=== PATIENT | male | born 1945 | race Caucasian/White ===

== ENCOUNTER → 2020-11-21 13:42 | Outpatient (CLI) | payer MEDICARE, SELFPAY ==
[2020-11-21] MEDS: COVID-19 VACC, Ad26(JANSSEN)/PF 0.5 ML IM (14:04)
== END ==
PROVIDERS: Family Provider Ophthalmology; PCP Internal Medicine; Visit Provider Internal Medicine
DX: Z23 Encounter for immunization (principal)
CPT/HCPCS: 0031A; 91303

== ENCOUNTER 2020-12-18 12:05 | Emergency (ER) | payer OTHER, SELFPAY ==
[2020-12-18] VITALS (12 sets, daily range): BP systolic 110–199; BP diastolic 75–92; PULSE 55–110; RESP 16–24; TEMP 37.2; O2SAT 96–100; BMI 26.5
[2020-12-18 12:37] LABS: INR 1.1 (0.9-1.3); Prothrombin Time 12.2 SECONDS (10.1-12.7)
[2020-12-18 12:43] LABS: Alanine Aminotransferase 26 IU/L (<50); Albumin 4.6 g/dL (3.5-5.0); Albumin Globulin Ratio 1.5 (1.0-2.8); Alkaline Phosphatase 60 U/L (38-126); Aspartate Aminotransferase 29 IU/L (17-59); BUN Creatinine Ratio 17.7 (6-22); Bilirubin Total 0.7 mg/dL (0.2-1.3); Blood Urea Nitrogen 14 mg/dL (9-20); Calcium 9.4 mg/dL (8.4-10.2); Carbon Dioxide 24 mmol/L (22-32); Chloride 101 mmol/L (98-107); Estimated Glomerular Filt Rate > 60.0 mL/min (>60); Globulin 3.1 g/dL (1.7-4.1); Glucose 113 mg/dL (80-110); HEMOLYSIS < 15 (0-50); Potassium 4.1 mmol/L (3.4-5.1); Sodium 135 mmol/L (137-145); Total Protein 7.7 g/dL (6.3-8.2)
[2020-12-18 12:46] LABS: Add Manual Diff / Slide Review NO; Basophils Absolute Auto 100 /uL (0-100); Eosinophils Absolute Auto 300 /uL (0-450); Eosinophils Percent Auto 2.7 % (2-4); Hematocrit 42.7 % (41-53); Hemoglobin 14.4 g/dL (13.5-17.5); Lymphocytes Absolute Auto 3600 /uL (1100-4500); Lymphocytes Percent Auto 33.1 % (25-40); Mean Corpuscular HGB Conc 33.8 % (30-36); Mean Corpuscular Hemoglobin 30.1 PG (26-34); Mean Corpuscular Volume 89.2 fL (80-100); Monocytes Absolute Auto 1200 /uL (0-900); Monocytes Percent Auto 11.2 % (3-14); Neutrophils Absolute Auto 5700 /uL (1500-7000); Platelet Count 229 X10^3/uL (150-400); Red Blood Cell Count 4.79 X10^6/uL (4.5-5.9); Red Cell Distribution Width 13.9 % (11.6-14.8); White Blood Cell Count 10.9 X10^3/uL (4.5-11.0)
[2020-12-18 12:47] LABS: Appearance Urine UA TURBID; Bacteria Urine None Seen; Bilirubin Urine UA NEGATIVE (NEGATIVE); Color Urine UA RED; Glucose Urine UA TRACE g/dL (Negative); Ketones Urine UA TRACE (NEGATIVE); Leukocyte Esterase Urine UA TRACE (NEGATIVE); Nitrite Urine UA POSITIVE (Negative); Occult Blood Urine UA 3+ (Negative); Protein Urine UA 3+ (Negative); Specific Gravity Urine UA 1.015 (1.000-1.035); Urobilinogen Urine UA 0.2 E.U./dL (0.2); pH Urine UA 7.5 (4.5-8.0)
[2020-12-18 12:50] LABS: RBC Urine >100/HPF (0-5/HPF); WBC Urine 1-5/HPF (0-5/HPF)
[2020-12-18 12:51] LABS: Culture Indicated Urine Specimen Cultured
--- NOTE | 2020-12-18 14:57 | ED_ITS ---
HPI - Male Genitourinary General Chief complaint: Urogenital-Male Stated complaint: Blood in urine Time Seen by Provider: 12/18/20 14:56 Source: patient Mode of arrival: Ambulatory Limitations: no limitations History of Present Illness HPI Narrative: 75-year-old gentleman with no significant medical history who takes a baby aspirin a day presents with acute gross hematuria. He had noted some pink urine last night some this morning and then mid day had the acute onset of gross hematuria without pain. He does not describe significant urinary retention, hesitancy frequency or dysuria. He does not describe vomiting, diarrhea, abdominal pain. No night sweats or recent weight changes. No abdominal pain or diarrhea. No chest pain palpitations or dyspnea. Dizziness or orthostatic symptoms. He is a lifelong nonsmoker. Related Data Previous Rx's Medication Instructions Recorded tamsulosin 0.4 mg PO DAILY #30 cap 12/18/20 Allergies Allergy/AdvReac Type Severity Reaction Status Date / Time No Known Drug Allergies Allergy Verified 12/18/20 12:17 Review of Systems Review of Systems Narrative: Remainder of review of systems is otherwise unremarkable Patient History Social History Smoking Status: Never smoker Smoking Status: Never smoker alcohol intake frequency: 3 or more drinks per day Alcohol type: beer, wine and hard liquor Substance Use Type: does not use Exam Narrative Exam Narrative: General: Healthy appearing, in no acute distress. Able to give a complete and coherent history. Well-nourished well-developed HEENT: Moist mucous membranes, normal sclera with reactive pupils, Neck: supple Respiratory: Lungs are clear to auscultation, no wheezing no rales no rhonchi. Full and symmetrical air movement Cardiac: Regular rate and rhythm no murmurs no bruits Abdomen: Soft, nontender, good bowel tones, no flank pain Skin: Warm and dry, no rashes Neurologic: Grossly neurologically intact with no obvious asymmetries or abnormalities Extremities: No trauma, well perfused Psych: Cooperative, appropriate insight and affect Bedside ultrasound: Postvoid residual 350 cc. 6.6 x 5.6 cm mass at the base of the bladder that appears to be complex. Initial Vital Signs Initial Vital Signs: Vital Signs Pulse Rate 100 H 12/18/20 12:14 Respiratory Rate 18 12/18/20 12:14 Pulse Oximetry 100 12/18/20 12:14 Course Orders Ordered: ED Orders 12/18/20 12:23 Complete Blood Count AUTO DIFF Stat Comprehensive Metabolic Panel Stat Prothrombin Time INR Stat 12/18/20 12:32 Urinalysis and Microscopic Stat Urine Culture Stat 12/18/20 15:33 CT abdomen pelvis w con Stat Discontinued Medications Tamsulosin HCl (Tamsulosin 0.4 Mg Capsule) 0.4 mg PO NOW ONE Stop: 12/18/20 15:38 Last Admin: 12/18/20 16:04 Dose: 0.4 mg Documented by: Vital Signs Vital signs: Vital Signs - 8 hr 12/18/20 12:14 12/18/20 12:17 12/18/20 12:30 Temperature 99.0 F Pulse Rate 100 H 82 110 H Respiratory Rate 18 24 17 Blood Pressure 110/75 110/86 Pulse Oximetry 100 100 97 12/18/20 13:00 12/18/20 13:14 12/18/20 13:30 Temperature Pulse Rate 93 H 57 L 61 Respiratory Rate 21 Blood Pressure 199/92 H 193/89 H Pulse Oximetry 97 98 97 12/18/20 13:32 12/18/20 14:00 12/18/20 14:20 Temperature Pulse Rate 55 L 75 92 H Respiratory Rate 18 Blood Pressure 182/79 H 164/75 H Pulse Oximetry 97 96 97 12/18/20 14:30 12/18/20 16:03 12/18/20 16:04 Temperature Pulse Rate 89 92 H 71 Respiratory Rate 16 Blood Pressure 159/76 H 168/83 H Pulse Oximetry 97 97 97 MDM - Male Genitourinary Medical Records Attestation: I reviewed the patient's medical records. Lab Data Attestation: I reviewed the patient's lab results. Result diagrams: 12/18/20 12:23 12/18/20 12:23 Labs: Lab Results 12/18/20 12/18/20 12/18/20 Range/Units 12:23 12:23 12:23 WBC 10.9 (4.5-11.0) X10^3/uL RBC 4.79 (4.5-5.9) X10^6/uL Hgb 14.4 (13.5-17.5) g/dL Hct 42.7 (41-53) % MCV 89.2 (80-100) fL MCH 30.1 (26-34) PG MCHC 33.8 (30-36) % RDW 13.9 (11.6-14.8) % Plt Count 229 (150-400) X10^3/uL Neut % (Auto) 52.0 (50-75) % Lymph % (Auto) 33.1 (25-40) % [place] % (Auto) 11.2 (3-14) % Eos % (Auto) 2.7 (2-4) % Baso % (Auto) 1.0 (0-2) % Neut # (Auto) 5700 (4240-5923) /uL Lymph # (Auto) 3600 (9269-7424) /uL [place] # (Auto) 1200 H (0-900) /uL Eos # (Auto) 300 (0-450) /uL Baso # (Auto) 100 (0-100) /uL PT 12.2 (10.1-12.7) SECONDS INR 1.1 (0.9-1.3) Sodium 135 L (137-145) mmol/L Potassium 4.1 (3.4-5.1) mmol/L Chloride 101 (98-107) mmol/L Carbon Dioxide 24 (22-32) mmol/L BUN 14 (9-20) mg/dL Creatinine 0.79 (0.66-1.25) mg/dL Estimated GFR > 60.0 (>60) mL/min BUN/Creatinine Ratio 17.7 (6-22) Glucose 113 H (80-110) mg/dL Calcium 9.4 (8.4-10.2) mg/dL Total Bilirubin 0.7 (0.2-1.3) mg/dL AST 29 (17-59) IU/L ALT 26 (<50) IU/L Alkaline Phosphatase 60 (38-126) U/L Total Protein 7.7 (6.3-8.2) g/dL Albumin 4.6 (3.5-5.0) g/dL Globulin 3.1 (1.7-4.1) g/dL Albumin/Globulin Ratio 1.5 (1.0-2.8) Urine Color Urine Appearance Urine pH (4.5-8.0) Ur Specific [place] (1.000-1.035) Urine Protein (Negative) Urine Glucose (UA) (Negative) g/dL Urine Ketones (NEGATIVE) Urine Occult Blood (Negative) Urine Nitrate (Negative) Urine Bilirubin (NEGATIVE) Urine Urobilinogen (0.2) E.U./dL Ur Leukocyte Esterase (NEGATIVE) Urine RBC (0-5/HPF) Urine WBC (0-5/HPF) Urine Bacteria (None) Ur Culture Indicated? 12/18/20 Range/Units 12:32 WBC (4.5-11.0) X10^3/uL RBC (4.5-5.9) X10^6/uL Hgb (13.5-17.5) g/dL Hct (41-53) % MCV (80-100) fL MCH (26-34) PG MCHC (30-36) % RDW (11.6-14.8) % Plt Count (150-400) X10^3/uL Neut % (Auto) (50-75) % Lymph % (Auto) (25-40) % [place] % (Auto) (3-14) % Eos % (Auto) (2-4) % Baso % (Auto) (0-2) % Neut # (Auto) (4718-9919) /uL Lymph # (Auto) (1818-7396) /uL [place] # (Auto) (0-900) /uL Eos # (Auto) (0-450) /uL Baso # (Auto) (0-100) /uL PT (10.1-12.7) SECONDS INR (0.9-1.3) Sodium (137-145) mmol/L Potassium (3.4-5.1) mmol/L Chloride (98-107) mmol/L Carbon Dioxide (22-32) mmol/L BUN (9-20) mg/dL Creatinine (0.66-1.25) mg/dL Estimated GFR (>60) mL/min BUN/Creatinine Ratio (6-22) Glucose (80-110) mg/dL Calcium (8.4-10.2) mg/dL Total Bilirubin (0.2-1.3) mg/dL AST (17-59) IU/L ALT (<50) IU/L Alkaline Phosphatase (38-126) U/L Total Protein (6.3-8.2) g/dL Albumin (3.5-5.0) g/dL Globulin (1.7-4.1) g/dL Albumin/Globulin Ratio (1.0-2.8) Urine Color Red Urine Appearance Turbid Urine pH 7.5 (4.5-8.0) Ur Specific [place] 1.015 (1.000-1.035) Urine Protein 3+ H (Negative) Urine Glucose (UA) Trace H (Negative) g/dL Urine Ketones Trace H (NEGATIVE) Urine Occult Blood 3+ H (Negative) Urine Nitrate Positive (Negative) Urine Bilirubin Negative (NEGATIVE) Urine Urobilinogen 0.2 (0.2) E.U./dL Ur Leukocyte Esterase Trace H (NEGATIVE) Urine RBC >100/hpf H (0-5/HPF) Urine WBC 1-5/hpf (0-5/HPF) Urine Bacteria None seen (None) Ur Culture Indicated? Specimen cultured MDM Narrative Medical decision making narrative: 75-year-old otherwise healthy gentleman with no current medicines presents with acute hematuria. Bedside bladder scan shows 350 cc postvoid residual and what looks like an exophytic mass 5.6 x 6.6 cm at the base of the bladder. This mass does not look like a simple hematoma/clot. Case is reviewed with Dr. Hernandes, he requests CT scan of the abdomen and pelvis which is facilitated. His office will call the patient to schedule a follow-up appointment within the next 1-2 days. Encouraged patient to return if he is unable to void at all. Discharge Plan Departure Patient Disposition: Home Clinical Impression: Bladder mass Hematuria Qualifiers: Hematuria type: gross Qualified Code(s): R31.0 - Gross hematuria Instructions: DI for Hematuria Activity Restrictions/Additional Instructions: Thank you for coming in today Your workup does not suggest that you have a kidney stone or bladder infection. I am concerned that there is a bladder mass and that the bleeding is coming from small broken blood vessel. Fortunately, of severe anemia or excessive blood loss (despite the amount of blood that you are seeing in your urine). I have reviewed your case with Dr. Hernandes, our urologist. His office will be contacting you within the next 24 hours. If you do not hear from them by midday tomorrow, please call them directly. I have included his office information in your discharge instructions If you find that you are unable to void at all, you will need to return to the emergency department and will need to put in a urinary catheter. I have given you the 1st dose of tamsulosin/Flomax today and will ask you to fill the prescription to begin tomorrow. I wish you the best Prescriptions: New tamsulosin 0.4 mg capsule 0.4 mg PO DAILY Qty: 30 RF: 0 Referrals: Kirstie Hernandes MD [Physician] - Nahum Kline MD [Primary Care Provider] -
--- NOTE | 2020-12-18 15:14 | PC.NURSE ---
Dr Alonso in to see pt with bedside US
--- NOTE | 2020-12-18 15:33 | DI.CT.S_ITS ---
PROCEDURE: CT ABDOMEN PELVIS W CON INDICATIONS: gross hematuria, bladder mass suspected on bedside us TECHNIQUE: After the administration of intravenous contrast, 5 mm thick sections acquired from the diaphragm to the symphysis. 5 mm coronal and sagittal reformats were acquired. For radiation dose reduction, the following was used: automated exposure control, adjustment of mA and/or kV according to patient size. COMPARISON: None. FINDINGS: Image quality: Excellent. ABDOMEN: Lung bases: Lung bases are clear. Heart size is normal. Solid organs: Liver is normal in size and enhancement. Diffuse fatty infiltration of the liver. Gallbladder is normal. Biliary system is non dilated. Pancreas enhances normally. Spleen is normal in size and enhancement. No adrenal nodules. Kidneys demonstrate normal size and enhancement, without hydronephrosis. Peritoneum and bowel: Bowel loops demonstrate normal wall thickness and caliber. Scattered colonic diverticuli without evidence of diverticulitis. No free fluid or air. Appendix is normal. Nodes and vessels: No retroperitoneal or mesenteric adenopathy by size criteria. Aorta and inferior vena cava are normal in size. Miscellaneous: No ventral hernias. PELVIS: Genitourinary: Bladder wall thickness is normal. Prostate is enlarged measuring 5.8 by 6.5 by 6.2 centimeters. 3.6 centimeter heterogeneously enhancing mass noted in the base of the bladder. Curvilinear density noted in the bladder adjacent to the mass which may represent hemorrhage. Miscellaneous: No inguinal hernias or adenopathy. Bones: No suspicious bony lesions. No vertebral body compression fractures. Spine degenerative disc disease and facet arthropathy. Grade 2 L4-L5 isthmic spondylolisthesis. IMPRESSION: 1. 3.6 centimeter mass in the base of the bladder which could represent clotted blood, mass arising from the prostate gland or mass arising from the bladder wall. 2. Curvilinear density in the urinary bladder adjacent to the lesion in the base most compatible with hemorrhage. 3. Colonic diverticulosis without evidence of diverticulitis. 4. Hepatic steatosis. Dictated by: Susanna Rachel MD, PhD on 12/18/2020 at 16:02 Approved by: Susanna Rachel MD, PhD on 12/18/2020 at 16:11
[2020-12-18] MEDS: TAMSULOSIN 0.4 MG CAPSULE PO (16:04)
== END 2020-12-18 16:51 | disposition home or self-care (01) ==
PROVIDERS: Emergency Medicine; Emergency Provider Emergency Medicine; Family Provider Ophthalmology; PCP Internal Medicine
DX: N32.9 Bladder disorder, unspecified (principal); R31.9 Hematuria, unspecified
CPT/HCPCS: 36415; 51798; 74177; 80053; 81001; 85025; 85610; 87086; 99284; Q9967

== ENCOUNTER → 2020-12-20 14:50 | Outpatient (ROUT) | payer OTHER, SELFPAY ==
[2020-12-20 15:07] LABS: Alanine Aminotransferase 30 IU/L (<50); Albumin 4.4 g/dL (3.5-5.0); Albumin Globulin Ratio 1.5 (1.0-2.8); Alkaline Phosphatase 51 U/L (38-126); Aspartate Aminotransferase 38 IU/L (17-59); BUN Creatinine Ratio 20.5 (6-22); Bilirubin Total 0.8 mg/dL (0.2-1.3); Blood Urea Nitrogen 17 mg/dL (9-20); Calcium 9.4 mg/dL (8.4-10.2); Carbon Dioxide 27 mmol/L (22-32); Chloride 102 mmol/L (98-107); Cholesterol 208 mg/dL (140-199); Estimated Glomerular Filt Rate > 60.0 mL/min (>60); Globulin 2.9 g/dL (1.7-4.1); Glucose 111 mg/dL (80-110); HDL Cholesterol 46 mg/dL (40-60); HEMOLYSIS < 15 (0-50); LDL Cholesterol Calculated 135 mg/dL (<100); Potassium 4.2 mmol/L (3.4-5.1); Sodium 138 mmol/L (137-145); Total Protein 7.3 g/dL (6.3-8.2); Triglycerides 133 mg/dL (35-150)
[2020-12-22 08:12] LABS: PSA Free % 19.8 % (.); PSA, Total 4.4 ng/mL (0.0-4.0)
== END ==
PROVIDERS: Family Provider Ophthalmology; PCP Internal Medicine; Visit Provider Internal Medicine
DX: Z12.5 Encounter for screening for malignant neoplasm of prostate (principal); I10 Essential (primary) hypertension
CPT/HCPCS: 80053; 80061; 84153; 84154

== ENCOUNTER → 2021-01-21 15:04 | Outpatient (ROUT) | payer OTHER, SELFPAY | PROVIDERS: Family Provider Ophthalmology; PCP Internal Medicine; Visit Provider Internal Medicine | DX: N39.0 Urinary tract infection, site not specified (principal) | CPT/HCPCS: 87086 ==

== ENCOUNTER → 2021-06-24 09:16 | Outpatient (CLI) | payer OTHER, SELFPAY ==
[2021-06-24 10:32] LABS: Prostate Specific Antigen 1.47 ng/mL (0.10-4.00)
== END ==
PROVIDERS: Family Provider Ophthalmology; PCP Internal Medicine; Referring Provider Specialist; Visit Provider Specialist
DX: N13.8 Other obstructive and reflux uropathy (principal); N40.1 Benign prostatic hyperplasia with lower urinary tract symptoms
CPT/HCPCS: 36415; 84153

== ENCOUNTER → 2021-08-21 13:46 | Outpatient (CLI) | payer OTHER, SELFPAY ==
[2021-08-21 14:48] LABS: Alanine Aminotransferase 15 IU/L (<50); Albumin 4.7 g/dL (3.5-5.0); Albumin Globulin Ratio 1.6 (1.0-2.8); Alkaline Phosphatase 58 U/L (38-126); Aspartate Aminotransferase 21 IU/L (17-59); BUN Creatinine Ratio 14.4 (6-22); Bilirubin Total 0.8 mg/dL (0.2-1.3); Blood Urea Nitrogen 13 mg/dL (9-20); Calcium 9.4 mg/dL (8.4-10.2); Carbon Dioxide 28 mmol/L (22-32); Chloride 101 mmol/L (98-107); Cholesterol 205 mg/dL (140-199); Estimated Glomerular Filt Rate > 60.0 mL/min (>60); Glucose 101 mg/dL (80-110); HDL Cholesterol 52 mg/dL (40-60); HEMOLYSIS < 15 (0-50); LDL Cholesterol Calculated 131 mg/dL (<100); Potassium 3.7 mmol/L (3.4-5.1); Sodium 140 mmol/L (137-145); Total Protein 7.7 g/dL (6.3-8.2); Triglycerides 108 mg/dL (35-150)
[2021-08-21 17:00] LABS: Hep C Virus Ab w/Reflex Quant NEGATIVE s/c (NEGATIVE)
== END ==
PROVIDERS: Family Provider Ophthalmology; PCP Internal Medicine; Referring Provider Internal Medicine; Visit Provider Internal Medicine
DX: E78.5 Hyperlipidemia, unspecified (principal); Z11.59 Encounter for screening for other viral diseases
CPT/HCPCS: 36415; 80053; 80061; 86803

== ENCOUNTER → 2022-01-16 11:06 | Outpatient (CLI) | payer MEDICARE, SELFPAY ==
[2022-01-16 12:36] LABS: COVID19 -Nasal RAPID Negative (Negative)
== END ==
PROVIDERS: Family Provider Ophthalmology; PCP Internal Medicine; Visit Provider Family Medicine Sleep Medicine
DX: Z20.822 Contact with and (suspected) exposure to COVID-19 (principal)
CPT/HCPCS: 87635; C9803

== ENCOUNTER 2022-01-19 11:52 | Day surgery (SDC) | payer MEDICARE, SELFPAY ==
--- NOTE | 2022-01-19 | PATH_ITS ---
[facility] Accession Number: [id number] . 01 Material submitted: . colon - ASCENDING COLON . 02 Diagnosis: Ascending Colon: Tubular adenoma. MRV 01/21/2022 0851 Local . 02 Electronically signed: . Cheri Sotelo MD, Pathologist NPI- [id number] . 01 Gross description: . ASCENDING COLON: Received in formalin is 1 fragment(s) of chávez, soft tissue measuring 0.3 x 0.3 x 0.2 cm submitted entirely in 1 cassette(s) /QBJ 01/20/2022 0915 Local . 02 Pathologist provided ICD-10: K63.5, R19.5 . 02 CPT . 326878 Specimen Comment: A courtesy copy of this report has been sent to [facility] Performed at: 01 [facility] [address] [place] [address], [place], [place] [id number] MD Jayme Diaz MD Phone: [phone] Performed at: 02 [facility] [address] [place], [place] [id number] MD Nicole Larsen MD Phone: [phone]
[2022-01-19] MEDS: SODIUM CHLORIDE 0.9% 1,000 ML 100 ML IV (12:15)
[2022-01-19 12:29] VITALS: BP 148/88; PULSE 81; RESP 18; TEMP 36.2; O2SAT 98; BMI 28.1
--- NOTE | 2022-01-19 12:57 | PM.HP.1 ---
History of Present Illness History of Present Illness Date Patient Seen: 01/19/22 Time Patient Seen: 12:57 Chief complaint: DX COLONOSCOPY Narrative: Positive Cologuard Patient History Medical History Asthma BPH w urinary obs/LUTS Chest pain Gross hematuria Surgical History H/O cataract removal with insertion of prosthetic lens H/O circumcision Family & Social History Family History Mother Hypertension Thyroid disorder Urinary tract infection Kidney stones Hyperparathyroidism Brother Pancreatic cancer Inflammatory bowel disease Social History: household members spouse Tobacco & Substance use: Smoking Status Former smoker alcohol intake current alcohol intake frequency 0-2 drinks per day Substance Use Type does not use Meds Home Medications and Allergies Home Medications Medication Instructions Recorded Confirmed Type omega-3 fatty acids 1,000 mg 1,000 mg PO DAILY 12/26/20 01/19/22 History capsule (Fish Oil Concentrate) amlodipine 10 mg tablet 10 mg PO DAILY 07/01/21 01/19/22 History finasteride 5 mg tablet 5 mg PO DAILY #90 tab 10/08/21 01/19/22 Rx tamsulosin 0.4 mg capsule 0.4 mg PO DAILY 01/19/22 01/19/22 History Allergies Allergy/AdvReac Type Severity Reaction Status Date / Time No Known Drug Allergies Allergy Verified 01/19/22 12:16 Review of Systems Review of Systems ROS: Yes All systems reviewed with the patient and are negative except as otherwise documented Exam Vital Signs (past 8 hours): - 01/19/22 12:29 Temperature 97.2 F L Pulse Rate 81 Respiratory Rate 18 Blood Pressure 148/88 H Pulse Oximetry 98 Oxygen Delivery Method Room Air Const General: cooperative and comfortable Orientation: alert HENMT Head: normocephalic Ears: external ears normal Nose: external nose normal Face and sinus: normal facial exam Mouth: oral mucosae normal Eyes General: appearance normal, both eyes and all related structures Neck Neck: normal visual inspection Chest Chest: normal inspection of the chest Resp Effort & Inspection: normal respiratory effort Cardio Rate: regular rate GI Inspection: normal to inspection Skin General: no rashes or lesions noted and No jaundice Neuro General: patient alert and moves all extremities Cognition: normal cognition Speech: speech normal Extrem General: no pedal edema Psych Appearance: grossly normal Assessment & Plan Assessment & Plan narrative: 76-year-old male with a positive Cologuard. Colonoscopy is pursued today. Time Spent With Patient Critical Care time: I spent a total of [] minutes of critical care time on this patient's care today; this time is exclusive of procedural time.
--- NOTE | 2022-01-19 14:12 | PM.OP.COLON ---
Operative Date/Time/Diagnoses Date of procedure: 01/19/22 Time of procedure: 14:13 Pre-op diagnosis: Positive Cologuard Post-op diagnosis: same Procedure & Clinicians Study performed: Colonoscopy with cold forceps polypectomy and APC mucosal ablation Same procedure as scheduled: Yes Indications: Positive Cologuard Surgeon: Jose Francisco Hobson Procedure Notes SCOAP/Timeout: Done Procedure in detail: After the risks and benefits were explained, written and verbal informed consent was obtained. The patient was brought into the procedure room and placed into the left lateral decubitus position. Please see nurse poured concrete wall technician notes for sedation details. Digital rectal examination was accomplished. The scope was introduced into the patient and advanced under direct visualization to the cecum as identified by the appendiceal orifice and ileocecal valve. The scope was slowly withdrawn to carefully examine the mucosa for any defects or lesions. Comprehensive imaging was accomplished throughout the rectum including the dentate line. The colon was decompressed, the scope was then removed from the patient who tolerated the procedure well. Bowel prep adequate Adult colonoscope Scope withdrawal time: 21 minutes Sedation minutes: 31 Complications: none Impression: Rather extensive diverticulosis was encountered throughout the sigmoid. Patient had grade 1 in a internal nonbleeding nonthrombosed hemorrhoids. No proctitis no colitis identified throughout. In the ascending colon there was a 3 mm polyp removed with cold forceps. In the midtransverse colon there was a small oozing focus of angiodysplasia. We ablated this area with a straight APC probe using right colon settings. Endoscopic diagnosis 1. Small colon polyp 2. Angiodysplasia x1 status post APC ablation 3. Diverticulosis 4. Grade 1 hemorrhoids Post-procedure Plan for aftercare: 1. Await histopathology. 2. If this polyp is indeed adenomatous, repeat colonoscopy would typically be suggested for 7 years placing the patient at age 83. It is therefore not recommended to pursue surveillance colonoscopy at this time. Disposition: PACU
[2022-01-19 14:15] VITALS: BP 116/62; PULSE 82; RESP 16; TEMP 36.4; O2SAT 96
[2022-01-19 14:20] VITALS: BP 124/68; PULSE 80; RESP 16; O2SAT 98
[2022-01-19 14:25] VITALS: BP 117/67; PULSE 74; RESP 16; O2SAT 98
[2022-01-19 14:35] VITALS: BP 137/80; PULSE 72; RESP 14; TEMP 36.8; O2SAT 98
== END 2022-01-19 14:52 | disposition home or self-care (01) ==
PROVIDERS: Family Provider Ophthalmology; PCP Internal Medicine; Referring Provider Internal Medicine Gastroenterology; Visit Provider Internal Medicine Gastroenterology
PROC: 0DJD8ZZ Inspection of Lower Intestinal Tract, Via Natural or Artificial Opening Endoscopic (ICD-10-PCS; CPT 45378; principal; 2022-01-19 13:00)
DX: R19.5 Other fecal abnormalities (principal); J45.909 Unspecified asthma, uncomplicated; K64.0 First degree hemorrhoids; K57.30 Diverticulosis of large intestine without perforation or abscess without bleeding; K55.21 Angiodysplasia of colon with hemorrhage; D12.2 Benign neoplasm of ascending colon
CPT/HCPCS: 45380; 45382; J2704

== ENCOUNTER → 2022-06-22 15:03 | Outpatient (CLI) | payer MEDICARE, SELFPAY ==
[2022-06-22 17:26] LABS: Prostate Specific Antigen 0.782 ng/mL (0.10-4.00)
== END ==
PROVIDERS: Family Provider Ophthalmology; PCP Internal Medicine; Referring Provider Specialist; Visit Provider Specialist
DX: N40.1 Benign prostatic hyperplasia with lower urinary tract symptoms (principal); N13.8 Other obstructive and reflux uropathy; R31.0 Gross hematuria
CPT/HCPCS: 36415; 84153

== ENCOUNTER → 2023-06-17 15:07 | Outpatient (CLI) | payer MEDICARE, SELFPAY ==
[2023-06-17 18:20] LABS: Prostate Specific Antigen 0.686 ng/mL (0.10-4.00)
== END ==
PROVIDERS: Family Provider Ophthalmology; PCP Internal Medicine; Referring Provider Specialist; Visit Provider Specialist
DX: N40.1 Benign prostatic hyperplasia with lower urinary tract symptoms (principal); N13.8 Other obstructive and reflux uropathy
CPT/HCPCS: 36415; 84153

== ENCOUNTER → 2024-06-19 14:34 | Outpatient (CLI) | payer MEDICARE, SELFPAY ==
[2024-06-19 16:27] LABS: Prostate Specific Antigen 0.705 ng/mL (0.10-4.00)
== END ==
PROVIDERS: Family Provider Ophthalmology; PCP Internal Medicine; Referring Provider Urology; Visit Provider Urology
DX: N40.1 Benign prostatic hyperplasia with lower urinary tract symptoms (principal); N13.8 Other obstructive and reflux uropathy
CPT/HCPCS: 84153

== ENCOUNTER → 2024-12-11 09:47 | Outpatient (CLI) | payer MEDICARE, SELFPAY ==
--- NOTE | 2024-12-11 09:49 | DI.CT.S_ITS ---
PROCEDURE: CT CHEST WO CON INDICATIONS: dyspnea, cough TECHNIQUE: Noncontrast 5 mm thick sections acquired from the pulmonary apices to the posterior costophrenic angles. 1 mm lung window, 5 mm thick coronal and sagittal and 7 mm axial MIP reformats were then acquired. For radiation dose reduction, the following was used: automated exposure control, adjustment of mA and/or kV according to patient size. COMPARISON: [facility], CT, CT ABDOMEN PELVIS W CON, 12/18/2020, 15:50. FINDINGS: Image quality: Diagnostic. Lower Neck: No enlarged lymph nodes. Thyroid: No thyroid nodules which require sonographic follow up, per consensus guidelines. Axillae: No enlarged lymph nodes. Chest Wall: Unremarkable. Bones: No suspicious osseous lesion. Lungs and Pleura: No pneumothorax or pleural effusions. Subtle ground-glass opacity in the anterior and posterior aspects of the lungs. A few small pulmonary nodules measuring 0.5 cm or less. For example left lower lobe 0.5 cm, (3/218), unchanged since 2020. The central airways are clear. Heart: Heart size is prominent. Aortic valvular calcification. No pericardial effusion. Thoracic Vessels: The aorta and pulmonary arteries demonstrate normal size. Mediastinum and Maral: No enlarged lymph nodes. Esophagus: No wall thickening. No hiatal hernia. Upper Abdomen: Visualized upper abdomen solid organs and bowel loops appear normal. IMPRESSION: 1. Subtle ground-glass airspace opacity bilaterally. Suspect infectious/inflammatory etiology. 2. A few pulmonary nodules measuring 0.5 cm or less. For example a nodule at the left lower lobe measuring 0.5 cm is unchanged since 2020. 3. No enlarged lymph nodes. Dictated by: Niraj Ward M.D. on 12/11/2024 at 12:29 Approved by: Niraj Ward M.D. on 12/11/2024 at 12:38
== END ==
PROVIDERS: Family Provider Ophthalmology; PCP Internal Medicine; Referring Provider Internal Medicine; Visit Provider Internal Medicine
DX: R05.9 Cough, unspecified (principal); Z12.2 Encounter for screening for malignant neoplasm of respiratory organs; R06.00 Dyspnea, unspecified; R91.8 Other nonspecific abnormal finding of lung field
CPT/HCPCS: 71250

== ENCOUNTER → 2025-01-03 09:09 | Outpatient (CLI) | payer MEDICARE, SELFPAY ==
--- NOTE | 2025-01-03 09:10 | DI.ECHO.S_ITS ---
[facility] : : [address] [place] : : [id number] : : Phone: [phone] Echocardiogram Report + + :Name: CHELSI SANCHEZ Study Date: 01/03/2025 Height: 68 in : :[facility] ReadingLocation: Weight: 180 lb : : Gender: Male BSA: 2.0 m2 : :: 1945 Age: 79 yrs BP: 136/68 mmHg: :Reason For Study: DYSPNEA : :Ordering Physician: FREDA, : :BRENDA Performed By: Amina Chacon : :Referring: BRENDA BARBA : + + Interpretation Summary 1) Normal left ventricular thickness and size with low normal systolic function (EF 50-55%). 2) Normal right ventricular size and function. 3) No significant valvular abnormalities. 4) The right ventricular systolic pressure is estimated to be at least 24 mmHg based on an estimated right atrial pressure of 3 mm Hg. 5) No prior Echo available for comparison. Procedure: A two-dimensional transthoracic echocardiogram with color flow and Doppler was performed. The study quality was technically adequate. There is no prior echocardiogram noted for this patient. The patient had frequent PVCs during the exam. The patient was in 56-76 during the exam. Left Ventricle: The left ventricle is normal in size and wall thickness. The ejection fraction is estimated to be 50-55%. There are no focal wall motion abnormalities. Right Ventricle: The right ventricle is normal in size and function. Atria: There is moderate biatrial enlargement. There is no Doppler evidence for an interatrial shunt. Mitral Valve: There is a flat closure plane of the the mitral valve leaflets. There is no mitral regurgitation noted. Aortic Valve: The aortic valve is slightly calcified. There is minimally reduced leaflet mobility. There is no aortic valve stenosis. There is trace aortic regurgitation. Tricuspid Valve: The tricuspid valve leaflets are thin and pliable. There is mild tricuspid regurgitation. The right ventricular systolic pressure is estimated to be at least 24 mmHg based on an estimated right atrial pressure of 3 mm Hg. Pulmonic Valve: The pulmonic valve is not well visualized. There is mild pulmonic regurgitation. Great Vessels: The aortic root is normal size. The dimensions of the ascending aorta are normal. The IVC is of normal diameter and collapses greater than 50% with a sniff. This suggests a low right atrial pressure of 3 mm Hg. Pericardium/ Pleura There is no pericardial effusion. There is no pleural effusion. MMode/2D Measurements & Calculations LVIDd: 5.4 cm LVOT diam: 2.1 cm LVIDs: 4.1 cm Ao root diam: 3.2 cm FS: 24.8 % asc Aorta Diam: 3.5 cm EPSS: 0.85 cm Ao Arch Diam (Prox Trans): 3.3 cm IVSd: 0.74 cm LVPWd: 0.85 cm LV goldman. diameter/BSA (cm/m^2): 2.8 LV sys. diameter/BSA (cm/m^2): 2.1 LA A2 area: 23.8 cm2 RA long axis: 5.9 cm LA A4 area: 22.5 cm2 RA area: 22.0 cm2 LA length (vol): 6.0 cm RA vol: 69.8 ml LA vol: 76.0 ml RA : 35.7 ml/m2 LA vol index: 38.9 ml/m2 IVC diam: 1.1 cm RVD1 (basal): 3.9 cm RVD2 (mid): 3.0 cm TAPSE: 2.0 cm Doppler Measurements & Calculations Ao V2 max: 126.5 cm/sec LVOT Max Nima: 99.1 cm/sec Ao V2 mean: 86.2 cm/sec LV V1 max P.9 mmHg Ao max P.4 mmHg LV V1 VTI: 22.1 cm Ao mean P.3 mmHg NADINE(I,D): 2.9 cm2 Ao V2 VTI: 26.4 cm NADINE(V,D): 2.7 cm2 sev ratio: 0.84 NADINE indexed to BSA (cm^2/m^2): 1.5 MV E max nima: 67.2 cm/sec TR max inma: 230.4 cm/sec MV A max nima: 44.0 cm/sec TR max P.2 mmHg MV E/A: 1.5 PA V2 max: 95.6 cm/sec Med Peak E' Nima: 6.8 cm/sec PA V2 mean: 66.1 cm/sec E/E' med: 9.9 PA mean P.0 mmHg Lat Peak E' Nima: 10.1 cm/sec PA pr(Accel): 36.6 mmHg E/E' lat: 6.6 E/e' average: 8.2 MV dec time: 0.23 sec SV(LVOT): 75.2 ml Reading Physician:01:00 PM
== END ==
PROVIDERS: Family Provider Ophthalmology; PCP Internal Medicine; Referring Provider Internal Medicine; Visit Provider Internal Medicine
DX: I07.1 Rheumatic tricuspid insufficiency (principal); R06.00 Dyspnea, unspecified
CPT/HCPCS: 93306

== ENCOUNTER → 2025-06-28 14:33 | Outpatient (CLI) | payer MEDICARE, SELFPAY ==
[2025-06-28 18:29] LABS: Prostate Specific Antigen 0.927 ng/mL (0.10-4.00)
== END ==
PROVIDERS: Family Provider Ophthalmology; PCP Internal Medicine; Referring Provider Urology; Visit Provider Urology
DX: R97.20 Elevated prostate specific antigen [PSA] (principal)
CPT/HCPCS: 36415; 84153